=== PATIENT | female | born 1980 | race American Indian/Alaskan Native ===

== ENCOUNTER 2018-09-18 09:41 | Emergency (ER) | payer OTHER ==
[2018-09-18] MEDS ORDERED: ZOFRAN IV ONE (10:54)
[2018-09-18] MEDS ORDERED: NACL 0.9% 1000 ML 1,000 ML IV ONE (10:54)
[2018-09-18] MEDS ORDERED: MORPHINE IV ONE (10:56)
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
[2018-09-18 12:06] LABS: Eosinophils % (Auto) 0.4 % (0.0-4.3); Hematocrit 41.1 % (30.3-42.9); Hemoglobin 13.8 gm/dl (10.1-14.3); Lymphocytes # (Auto) 1.5 K/mm3 (1.2-5.4); Lymphocytes % (Auto) 36.3 % (13.4-35.0); Mean Corpuscular HGB Conc 34 % (30-34); Mean Corpuscular Hemoglobin 31 pg (28-32); Mean Corpuscular Volume 91 fl (79-97); Monocytes # (Auto) 0.4 K/mm3 (0.0-0.8); Monocytes % (Auto) 8.6 % (0.0-7.3); Platelet Count 231 K/mm3 (140-440); Red Cell Distribution Width 13.1 % (13.2-15.2)
[2018-09-18 12:11] LABS: BUN/Creatinine Ratio 7; Blood Urea Nitrogen 5 mg/dL (7-17); Calcium 9.8 mg/dL (8.4-10.2); Hemolysis Index 39
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
[2018-09-18 14:59] VITALS: BP 111/72
== END 2018-09-18 15:34 | disposition home or self-care (01) ==
LOC: ED 09:41
DX: S70.01XA Contusion of right hip, initial encounter (principal); S00.93XA Contusion of unspecified part of head, initial encounter; S30.1XXA Contusion of abdominal wall, initial encounter; G43.909 Migraine, unspecified, not intractable, without status migrainosus; Z88.0 Allergy status to penicillin; V49.59XA Passenger injured in collision with other motor vehicles in traffic accident, initial encounter; Y93.89 Activity, other specified; Y92.410 Unspecified street and highway as the place of occurrence of the external cause; Y99.8 Other external cause status
CPT/HCPCS: 36415; 71045; 72040; 74177; 80048; 84703; 85025; 96374; 96375; 99284; J2270; J2405; J7030; Q9967